=== PATIENT | male | born 1975 | race Caucasian/White ===

== ENCOUNTER → 2024-09-26 | Outpatient (CLI) | payer OTHER ==
--- NOTE | 2024-09-26 15:41 | XR ---
EXAMINATION TYPE: XR humerus LT DATE OF EXAM: 09/26/2024 3:18 PM COMPARISON: None CLINICAL INDICATION: Male, 49 years old with history of S46.812A STRAIN OF MUSC/FASC/TEND AT SHLDR/UP ARM,; PHH, pain TECHNIQUE: XR humerus LT examined in frontal and lateral projections. FINDINGS: No evidence of acute osseous pathology, joint dislocation, or soft tissue swelling. The rem aining portions of the visualized chest are unremarkable. IMPRESSION: No acute osseous pathology. [facility], , 09/26/2024 3:39 PM
== END | disposition home or self-care (01) ==
LOC: RADXRMAIN 15:04
PROVIDERS: ATTEND Emergency Medicine
DX: S46.812A Strain of other muscles, fascia and tendons at shoulder and upper arm level, left arm, initial encounter (principal)

== ENCOUNTER → 2025-01-27 | Outpatient (CLI) | payer BC ==
--- NOTE | 2025-01-27 08:03 | US ---
EXAMINATION TYPE: US liver DATE OF EXAM: 01/27/2025 COMPARISON: NONE CLINICAL INDICATION: Male, 49 years old with history of R74.8 ABNORMAL LEVELS OF OTHER SERUM ENZYMES; abn lfts, no symptoms TECHNIQUE: Grayscale and color Doppler imaging of the right upper quadrant was performed. FINDINGS: EXAM MEASUREMENTS: Liver Length: 17.3 cm. Normal less than 15.5 cm. Gallbladder Wall: 0.2 cm CBD: 0.5 cm Right Kidney: 11.0 x 4.7 x 4.8 cm Pancreas: wnl Liver: wnl Gallbladder: wnl Evidence for sonographic Troy's sign: no CBD: wnl Right Kidney: wnl IMPRESSION: Mild hepatomegaly [facility], , 01/27/2025 8:00 AM
== END | disposition home or self-care (01) ==
LOC: RADUSWWP 07:11
PROVIDERS: ATTEND Internal Medicine
DX: R16.0 Hepatomegaly, not elsewhere classified (principal); R74.8 Abnormal levels of other serum enzymes
CPT/HCPCS: 76705